=== PATIENT | female | born 1955 | race American Indian/Alaskan Native ===

== ENCOUNTER 2019-04-02 17:15 | Emergency (ER) | payer OTHER, MEDICARE ==
--- NOTE | 2019-04-02 20:13 | XRay Report ---
LEFT ELBOW 3 VIEWS INDICATION / CLINICAL INFORMATION: pain and swelling. COMPARISON: None available. FINDINGS: No fracture, dislocation or left elbow effusion is present. Soft tissue swelling is seen within the m edial subcutaneous soft tissues. Signer Name: Gato Davis MD Signed: 04/02/2019 8:09 PM Workstation Name: [id number]
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
--- NOTE | 2019-04-02 20:14 | XRay Report ---
LEFT FOREARM 2 VIEWS INDICATION / CLINICAL INFORMATION: pain and swelling. COMPARISON: None available. FINDINGS: No fracture or dislocation is seen within the left radius or ulna. Signer Name: Gato Davis MD Signed: 04/02/2019 8:09 PM Workstation Name: [id number]
[2019-04-02] MEDS ORDERED: NORCO 7.5/325 PO ONE (22:36)
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
[2019-04-02 23:38] VITALS: BP 158/72
== END 2019-04-02 23:39 | disposition home or self-care (01) ==
LOC: ED 17:15
DX: S60.511A Abrasion of right hand, initial encounter (principal); M79.671 Pain in right foot; V89.2XXA Person injured in unspecified motor-vehicle accident, traffic, initial encounter; Y93.89 Activity, other specified; Y92.410 Unspecified street and highway as the place of occurrence of the external cause; Y99.8 Other external cause status